=== PATIENT | female | born 1990 | race African-American/Black ===

== ENCOUNTER 2019-09-23 19:33 | Emergency (ER) | payer SELFPAY ==
[~2019-09-23] VITALS: Ht 157.5 cm; Wt 136.3 kg
[~2019-09-23 19:33] MED LIST: CIPR500T94 PO; ONDA4TAB10 PO; ONDA4TAB10 SL; TRAM-48 PO
[2019-09-23] MEDS ORDERED: HYDR-3164 PO (20:06)
[2019-09-23] MEDS ORDERED: AMOX500C PO (20:06)
--- NOTE | 2019-09-23 20:06 | PHYS DOC ---
Past Medical History Past Medical History: Hypertension Past Surgical History: Additional Past Surgical Histo: X 3 Smoking Status: Current Every Day Smoker Alcohol Use: Occasionally Drug Use: Marijuana General Adult EDM: Chief Complaint: ABSCESS HPI: HPI: Patient is a 29 year old -[place] female who presents with complaint of pain to the right upper dental region since 9:00 last night. Pain is moderate to severe. No medications taken prior to arrival. No drainage, fever or chills. Patient has poor dentition and does not follow with a dentist. Review of Systems: Review of Systems: All other systems negative except as documented in HPI. Heart Score: Risk Factors: Risk Factors: DM, Current or recent (<one month) smoker, HTN, HLP, family history of CAD, obesity. Risk Scores: Score 0 - 3: 2.5% MACE over next 6 weeks - Discharge Home Score 4 - 6: 20.3% MACE over next 6 weeks - Admit for Clinical Observation Score 7 - 10: 72.7% MACE over next 6 weeks - Early Invasive Strategies Allergies: Allergies: Allergies Coded Allergies Type Severity Reaction Last Updated Verified No Known Drug Allergies 11/02/15 No Physical Exam: PE: Constitutional: Well developed, well nourished, slightly uncomfortable, non- toxic appearance. [] HENT: Normocephalic, atraumatic, bilateral external ears normal, oropharynx moist, no oral exudates, nose normal. There is erythema adjacent to the right upper first and second premolars and the first and second molar with extensive dental decay. No appreciable formal abscess is noticed. Eyes: PERRLA, EOMI, conjunctiva normal, no discharge. [] Neck: Normal range of motion, no tenderness, supple, no stridor. [] Cardiovascular:Heart rate regular rhythm, no murmur [] Lungs & Thorax: Bilateral breath sounds clear to auscultation [] Skin: Warm, dry, no erythema, no rash. [] Back: No tenderness, no CVA tenderness. [] Extremities: No tenderness, no cyanosis, no clubbing, ROM intact, no edema. [] Neurologic: Alert and oriented X 3, normal motor function, normal sensory function, no focal deficits noted. [] EKG: EKG: [] Radiology/Procedures: Radiology/Procedures: [] Course & Med Decision Making: Course & Med Decision Making This patient is seen for dental pain. Examination reveals the presence of what appears to be the beginning of an abscess/dental infection. Patient will be given amoxicillin and also [place] in the ER and prescriptions for each. She is strongly encouraged to follow-up with a dentist for further care and evaluation. Laine Disclaimer: Laine Disclaimer: This electronic medical record was generated, in whole or in part, using a voice recognition dictation system. Departure Departure Impression: Primary Impression: Infected dental caries Disposition: HOME, SELF-CARE Condition: STABLE Referrals: NO PCP (PCP) Patient Instructions: Dental Caries Additional Instructions: PLEASE FOLLOW UP WITH A DENTIST SOON POSSIBLE AND TAKE ALL PRESCRIPTIONS PRESCRIBED. Scripts Hydrocodone/Apap 5-325 (NORCO 5-325 TABLET) 1 Each Tablet 1 TAB PO PRN Q6HRS PRN for PAIN, #10 TAB 0 Refills Prov: RICKEY HARRELL DO 09/23/19 Amoxicillin (AMOXICILLIN) 500 Mg Capsule 1 CAP PO Q8HRS for infection, #30 CAP Prov: RICKEY HARRELL DO 09/23/19 RICKEY HARRELL DO Sep 23, 2019 20:06
[2019-09-23] MEDS ORDERED: AMOXICILLIN 250 MG CAPSULE. PO ONE (20:15)
[2019-09-23] MEDS ORDERED: HYDROcodone/APAP 5/325MG 1 TAB TABLET PO ONE (20:15)
[2019-09-23 20:16] VITALS: BP 139/83
== END 2019-09-23 20:22 | disposition home or self-care (01) ==
LOC: ER 19:33
DX: K04.7 Periapical abscess without sinus (principal); I10 Essential (primary) hypertension; F17.200 Nicotine dependence, unspecified, uncomplicated
CPT/HCPCS: 99283

== ENCOUNTER 2020-09-04 11:47 | Emergency (ER) | payer MEDICAID ==
[~2020-09-04] VITALS: Ht 157.5 cm; Wt 66.0 kg
[~2020-09-04 11:47] MED LIST changes: +AMOX500C PO; +HYDR-3164 PO
[2020-09-04] MEDS ORDERED: VANCOMYCIN PER PHARMACY MC ONE (14:15)
[2020-09-04] MEDS ORDERED: VANCOMYCIN 1.5 GM in IV NORMAL SALINE 500ML BAG 500 ML IV ONE (14:15)
[2020-09-04] MEDS ORDERED: IV NORMAL SALINE 1000ML BAG 1,000 ML IV SCH (14:15)
[2020-09-04] MEDS ORDERED: PIPERACILLIN/TAZOBACTAM 4.5 GM in IV NORMAL SALINE 100ML 100 ML IV ONE (14:15)
[2020-09-04 15:04] LABS: BASO # 0.1 x10^3/uL (0.0-0.2); BASO % 1 % (0-3); EOS # 0.1 x10^3/uL (0.0-0.7); EOS % 1 % (0-3); HEMATOCRIT 38.5 % (36.0-47.0); HEMOGLOBIN 12.9 g/dL (12.0-15.5); LYMPH # 1.6 x10^3/uL (1.0-4.8); LYMPH % 17 % (24-48); MEAN CORPUSCULAR HEMOGLOBIN 31 pg (25-35); MEAN CORPUSCULAR HGB CONC 34 g/dL (31-37); MEAN CORPUSCULAR VOLUME 94 fL (79-100); MONO # 0.6 x10^3/uL (0.0-1.1); MONO % 7 % (0-9); NEUT # 7.5 x10^3/uL (1.8-7.7); NEUT % 76 % (31-73); PLATELET COUNT 272 x10^3/uL (140-400); RED BLOOD COUNT 4.11 x10^6/uL (3.50-5.40); RED CELL DISTRIBUTION WIDTH 14.9 % (11.5-14.5); WHITE BLOOD COUNT 9.9 x10^3/uL (4.0-11.0)
[2020-09-04 15:16] LABS: PROTHROMBIN TIME PATIENT 13.4 SEC (11.7-14.0)
[2020-09-04] MEDS: MORPHINE SULFATE 4 MG/ML VIAL. IV/SQ PRN ×2 (15:16→17:31)
[2020-09-04 15:17] LABS: CREATININE 0.9 mg/dL (0.6-1.0); POTASSIUM 3.8 mmol/L (3.5-5.1)
[2020-09-04 15:23] LABS: ALBUMIN 3.9 g/dL (3.4-5.0); ALBUMIN/GLOBULIN RATIO 0.9 (1.0-1.7); TOTAL BILIRUBIN 0.5 mg/dL (0.2-1.0); TOTAL PROTEIN 8.3 g/dL (6.4-8.2)
[2020-09-04] MEDS ORDERED: ONDANSETRON PF 4 MG/2 ML VIAL. IVP ONE (15:30)
[2020-09-04] MEDS ORDERED: CONTRAST GIVEN. MC PRN (15:30)
[2020-09-04] MEDS ORDERED: IOHEXOL 300 MG/ML 100ML VIAL. IV ONE (15:30)
--- NOTE | 2020-09-04 16:09 | RAD ---
Exam: CT maxillofacial with contrast INDICATION: Hard palate abscess TECHNIQUE: Sequential axial images through the face obtained following the administration of 70 mL of Omni 300 IV contrast. Sagittal and coronal reformatted images were reconstructed from the axial data and reviewed. Comparisons: Heart palate abscess FINDINGS: Visualized intrapelvic structures are unremarkable. Globes and orbital contents are normal. Paranasal sinuses and mastoid air cells are well-pneumatized. There is a peripherally enhancing fluid collection along the undersurface of the hard palate which me asures approximately 3.4 x 1.5 x 1.5 cm. Extensive periodontal disease with numerous dental caries and several areas of periapical lucency thr oughout the mandibular and maxillary teeth. IMPRESSION: 1. Peripherally enhancing fluid collection along the undersurface of the hard palate which measures 3.4 x 1.5 x 1.5 cm. This is favored represent abscess. 2. Extensive periodontal disease Exposure: One or more of the following in the visualized dose reduction techniques were utilized for this examination: 1. Automated exposure control 2. Adjustment of the MA and/or KV according to patient size 3. Use of iterative of reconstructive technique Electronically signed by: Alo Gordillo MD (09/04/2020 4:07 PM) [facility]
[2020-09-04] MEDS ORDERED: HYDR-2761 PO (17:34)
[2020-09-04] MEDS ORDERED: CLIN150C15 PO (17:34)
--- NOTE | 2020-09-04 17:35 | PHYS DOC ---
Past Medical History Past Medical History: No Pertinent History, Hypertension Past Surgical History: Additional Past Surgical Histo: X 3 Smoking Status: Current Every Day Smoker Alcohol Use: Occasionally Drug Use: Marijuana General Adult EDM: Chief Complaint: DENTAL PROBLEM HPI: HPI: Patient is a 30 year old female with history of hypertension presenting to the ED today complaining of an abscess on her hard palate that began 3 days ago. Patient denies any fever. Denies any difficulty swallowing. Review of Systems: Review of Systems: Constitutional: Denies fever or chills. [] HENT: Reports an abscess on the hard palate denies nasal congestion or sore throat. [] Respiratory: Denies cough or shortness of breath. [] Cardiovascular: Denies chest pain or edema. [] GI: Denies abdominal pain, nausea, vomiting, bloody stools or diarrhea. [] : Denies dysuria. [] Musculoskeletal: Denies back pain or joint pain. [] Integument: Denies rash. [] Neurologic: Denies headache, focal weakness or sensory changes. [] Psychiatric: Denies depression or anxiety. [] Heart Score: C/O Chest Pain: N/A Risk Factors: Risk Factors: DM, Current or recent (<one month) smoker, HTN, HLP, family history of CAD, obesity. Risk Scores: Score 0 - 3: 2.5% MACE over next 6 weeks - Discharge Home Score 4 - 6: 20.3% MACE over next 6 weeks - Admit for Clinical Observation Score 7 - 10: 72.7% MACE over next 6 weeks - Early Invasive Strategies Current Medications: Current Medications Medications (Trade) Dose Ordered Sig/Lyle Start Time Stop Time Status Last Admin Dose Admin Info (CONTRAST GIVEN -- Rx MONITORING) 1 each PRN DAILY PRN 09/04/20 15:30 09/06/20 15:29 Iohexol (Omnipaque 300 Mg/ml) 70 ml 1X ONCE 09/04/20 15:30 09/04/20 15:31 DC 09/04/20 15:46 70 ML Morphine Sulfate (Morphine Sulfate) 4 mg PRN Q15MIN PRN 09/04/20 14:15 09/05/20 14:14 09/04/20 15:16 4 MG Ondansetron HCl (Zofran) 4 mg 1X ONCE 09/04/20 15:30 09/04/20 15:31 DC 09/04/20 16:30 4 MG Piperacillin Sod/ Tazobactam Sod 4.5 gm/Sodium Chloride 100 ml @ 200 mls/hr 1X ONCE 09/04/20 14:15 09/04/20 14:44 DC 09/04/20 15:17 200 MLS/HR Sodium Chloride 1,000 ml @ 1,980 mls/hr Q31M 09/04/20 14:15 09/04/20 15:15 DC 09/04/20 15:17 1,980 MLS/HR Vancomycin HCl (Vanco Per Pharmacy) 1 each 1X ONCE 09/04/20 14:15 09/04/20 14:16 DC Vancomycin HCl 1.5 gm/Sodium Chloride 500 ml @ 250 mls/hr 1X ONCE 09/04/20 14:15 09/04/20 16:14 DC 09/04/20 16:30 250 MLS/HR Allergies: Allergies: Allergies Coded Allergies Type Severity Reaction Last Updated Verified No Known Drug Allergies 11/02/15 No Physical Exam: PE: Constitutional: Well developed, well nourished, no acute distress, non-toxic appearance. [] HENT: Normocephalic, atraumatic, bilateral external ears normal, oropharynx moist, no oral exudates, nose normal. [] Hard palate with an indurated area roughly 3 x 3 cm. No erythema. No fluctuance. Severe dental decay noted throughout. Eyes: PERRLA, EOMI, conjunctiva normal, no discharge. [] Neck: Normal range of motion, no tenderness, supple, no stridor. [] Cardiovascular:Heart rate regular rhythm, no murmur [] Lungs & Thorax: Bilateral breath sounds clear to auscultation [] Abdomen: Bowel sounds normal, soft, no tenderness, no masses, no pulsatile masses. [] Skin: Warm, dry, no erythema, no rash. [] Back: No tenderness, no CVA tenderness. [] Extremities: No tenderness, no cyanosis, no clubbing, ROM intact, no edema. [] Neurologic: Alert and oriented X 3, normal motor function, normal sensory funct ion, no focal deficits noted. [] Psychologic: Very rude patient. Boyfriend had to stop her from speaking mean to staff Current Patient Data: Labs: Laboratory Tests Test 09/04/20 14:50 09/04/20 15:14 White Blood Count 9.9 x10^3/uL (4.0-11.0) Red Blood Count 4.11 x10^6/uL (3.50-5.40) Hemoglobin 12.9 g/dL (12.0-15.5) Hematocrit 38.5 % (36.0-47.0) Mean Corpuscular Volume 94 fL (79-100) Mean Corpuscular Hemoglobin 31 pg (25-35) Mean Corpuscular Hemoglobin Concent 34 g/dL (31-37) Red Cell Distribution Width 14.9 % (11.5-14.5) H Platelet Count 272 x10^3/uL (140-400) Neutrophils (%) (Auto) 76 % (31-73) H Lymphocytes (%) (Auto) 17 % (24-48) L Monocytes (%) (Auto) 7 % (0-9) Eosinophils (%) (Auto) 1 % (0-3) Basophils (%) (Auto) 1 % (0-3) Neutrophils # (Auto) 7.5 x10^3/uL (1.8-7.7) Lymphocytes # (Auto) 1.6 x10^3/uL (1.0-4.8) Monocytes # (Auto) 0.6 x10^3/uL (0.0-1.1) Eosinophils # (Auto) 0.1 x10^3/uL (0.0-0.7) Basophils # (Auto) 0.1 x10^3/uL (0.0-0.2) Prothrombin Time 13.4 SEC (11.7-14.0) Prothrombin Time INR 1.1 (0.8-1.1) Activated Partial Thromboplast Time 32 SEC (24-38) Sodium Level 141 mmol/L (136-145) Potassium Level 3.8 mmol/L (3.5-5.1) Chloride Level 102 mmol/L (98-107) Carbon Dioxide Level 23 mmol/L (21-32) Anion Gap 16 (6-14) H Blood Urea Nitrogen 13 mg/dL (7-20) Creatinine 0.9 mg/dL (0.6-1.0) Estimated GFR (Cockcroft-Gault) 89.0 BUN/Creatinine Ratio 14 (6-20) Glucose Level 79 mg/dL (70-99) Lactic Acid Level 1.1 mmol/L (0.4-2.0) Calcium Level 9.0 mg/dL (8.5-10.1) Total Bilirubin 0.5 mg/dL (0.2-1.0) Aspartate Amino Transferase (AST) 8 U/L (15-37) L Alanine Aminotransferase (ALT) 16 U/L (14-59) Alkaline Phosphatase 68 U/L (46-116) Total Protein 8.3 g/dL (6.4-8.2) H Albumin 3.9 g/dL (3.4-5.0) Albumin/Globulin Ratio 0.9 (1.0-1.7) L Procalcitonin < 0.10 ng/mL (0.00-0.10) POC Urine HCG, Qualitative Hcg negative (Negative) Laboratory Tests 09/04/20 14:50 Laboratory Tests 09/04/20 14:50 Vital Signs: Vital Signs Date Time Temp Pulse Resp B/P (MAP) Pulse Ox O2 Delivery O2 Flow Rate FiO2 09/04/20 15:16 18 98 Room Air 09/04/20 13:25 99.2 98 125/81 (96) 99.2 EKG: EKG: [] Radiology/Procedures: Radiology/Procedures: []PROCEDURE: CT MAXILLOFACIAL W/CONTRAST Exam: CT maxillofacial with contrast INDICATION: Hard palate abscess TECHNIQUE: Sequential axial images through the face obtained following the administration of 70 mL of Omni 300 IV contrast. Sagittal and coronal reformatted images were reconstructed from the axial data and reviewed. Comparisons: Heart palate abscess FINDINGS: Visualized intrapelvic structures are unremarkable. Globes and orbital contents are normal. Paranasal sinuses and mastoid air cells are well-pneumatized. There is a peripherally enhancing fluid collection along the undersurface of the hard palate which measures approximately 3.4 x 1.5 x 1.5 cm. Extensive periodontal disease with numerous dental caries and several areas of periapical lucency throughout the mandibular and maxillary teeth. IMPRESSION: 1. Peripherally enhancing fluid collection along the undersurface of the hard palate which measures 3.4 x 1.5 x 1.5 cm. This is favored represent abscess. 2. Extensive periodontal disease Exposure: One or more of the following in the visualized dose reduction techniques were utilized for this examination: 1. Automated exposure control 2. Adjustment of the MA and/or KV according to patient size 3. Use of iterative of reconstructive technique Electronically signed by: Alo Abbasi MD (09/04/2020 4:07 PM) [facility] DICTATED and SIGNED BY: ALO ABBASI MD DATE: 09/04/20 [id number] 0 Course & Med Decision Making: Course & Med Decision Making Pertinent Labs and Imaging studies reviewed. (See chart for details) This is a 30-year-old female patient presented to the ED today complaining of an abscess on the hard palate that began 3 days ago. CBC, CMP, lactic with no acute findings, vitals are stable including a normal temperature. CT of maxillofacial with IV contrast noted for an abscess on the hard palate, also noted for extensive periodontal disease Airway is open. Patient was given Zosyn and vancomycin in the ED Spoke with Dr. Deneen Sorenson, ENT, she requested patient to go to her office t omorrow at 11:30 AM and she will drain this abscess. In the meantime discharge patient on clindamycin Dragon Disclaimer: Dragon Disclaimer: This electronic medical record was generated, in whole or in part, using a voice recognition dictation system. Departure Departure Impression: Primary Impression: Hard palate abscess Disposition: 01 DC HOME SELF CARE/HOMELESS Condition: STABLE Referrals: NO PCP (PCP) DENEEN SORENSON MD Please go to our office tomorrow at 1130 to have it drained Patient Instructions: Abscess Additional Instructions: You have an abscess on your hard palate/mouth. Please go to Dr. Sorenson's office tomorrow at 11:30 AM and she will drain it Scripts Clindamycin Hcl (CLINDAMYCIN HCL) 150 Mg Capsule 3 CAP PO TID, #90 CAP Prov: ADRIANNA ENRIQUE APRN 09/04/20 Hydrocodone Bit/Acetaminophen (HYDROCODONE-APAP 5-325 ) 1 Tab Tablet 1 TAB PO PRN Q6HRS PRN for PAIN, #20 TAB 0 Refills Prov: ADRIANNA ENRIQUE APRN 09/04/20 ADRIANNA ENRIQUE APRN Sep 04, 2020 17:35
[2020-09-04 18:49] VITALS: BP 127/85
== END 2020-09-04 19:00 | disposition home or self-care (01) ==
LOC: ER 11:47
DX: M27.2 Inflammatory conditions of jaws (principal); K02.9 Dental caries, unspecified; I10 Essential (primary) hypertension; F17.200 Nicotine dependence, unspecified, uncomplicated; F12.90 Cannabis use, unspecified, uncomplicated; Z98.890 Other specified postprocedural states
CPT/HCPCS: 36415; 70487; 80053; 81025; 83605; 84145; 85025; 85610; 85730; 87040; 96365; 96366; 96367; 96375; 96376; 99285; J2270; J2405; J2543; J3370; J7030; J7040; Q9967